=== PATIENT | female | born 1990 | race Caucasian/White ===

== ENCOUNTER 2018-02-24 11:23 | Inpatient (IN) | payer OTHER ==
[~2018-02-24] VITALS: Ht 170.2 cm; Wt 58.5 kg
[~2018-02-24 11:23] MED LIST: IBUPROFEN600 M1 PO; IBUPROFEN800 MG PO; KEPPRA 500MG T500 MG PO; LOESTRIN 21 1.51 TAB PO; MOTRIN800 MG PO; NAPROSYN500 M1 PO; OMEPRAZOLE D/R20 MG PO; PRENATAL1 TA2 PO; PROZAC20 M1 PO; RITALIN LA40 MG PO; RITALIN20 MG PO; RITALIN5 MG PO; VIGAMOX3 ML OPH; VYVANSE40 MG PO
[2018-02-24 12:21] LABS: ABSOLUTE BASOPHIL COUNT 0 /CUMM (0.0-0.2); ABSOLUTE EOSINOPHIL COUNT 0 /CUMM (0.0-0.7); ABSOLUTE GRANULOCYTE CT 3.5 /CUMM (1.4-6.5); ABSOLUTE LYMPH COUNT 1.2 /CUMM (1.2-3.4); ABSOLUTE MONOCYTE COUNT 0.3 /CUMM (0.10-0.60); BASOPHIL % 0.4 % (0.0-2.0); EOSINOPHIL % 0.6 % (0-5); GRANULOCYTE % 68.8 % (42.2-75.2); HEMATOCRIT 40.4 % (37-47); MEAN CORPUSCULAR HGB 31.9 PG (27.0-31.0); MEAN CORPUSCULAR HGB CONC 34.6 G/DL (33.0-37.0); MEAN CORPUSCULAR VOLUME 92.2 FL (81.0-99.0); MEAN PLATELET VOLUME 6.1 FL (7.4-10.4); PLATELET COUNT 259 /CUMM (130-400); RBC DISTRIBUTION WIDTH 13.8 % (11.5-14.5); RED BLOOD CELL CT 4.39 /CUMM (4.20-5.40)
--- NOTE | 2018-02-24 13:11 | ED GENERAL ADULT ---
See Addendum History of Present Illness General Chief Complaint: Psychiatric Related Complaint Stated Complaint: "BIPOLAR MEDS NOT WORKING" Source: patient Exam Limitations: no limitations Vital Signs & Intake/Output Vital Signs & Intake/Output Vital Signs Date Time Temp Pulse Resp B/P B/P Pulse O2 O2 Flow FiO2 Mean Ox Delivery Rate 02/24 1633 98.1 80 16 146/88 100 Room Air 02/24 1246 97 Room Air 02/24 1203 97.3 84 20 126/72 98 Room Air 02/24 1143 98.0 82 17 138/72 100 Room Air Allergies Coded Allergies: Penicillins (Severe, HIVES 02/08/16) amoxicillin (Severe, HIVES ENTIRE BODY 01/04/17) sulfamethoxazole (From Bactrim) (Severe, HIVES 02/08/16) trimethoprim (From Bactrim) (Severe, HIVES 02/08/16) zolpidem (From Ambien) (Severe, MADE HER SLEEP DRIVE ENDED UP IN SHELTER 02/08/16) Reconcile Medications Fluoxetine Hydrochloride (Prozac) (Unknown Strength) CAP (Unknown Dose) PO DAILY DEPRESSION (Reported) Ibuprofen 600 MG TABLET 1 TAB PO TID PRN pain with food Ibuprofen (Motrin) 800 MG TAB 1 TAB PO Q8H PRN PAIN Levetiracetam (Keppra 500MG Tab) 500 MG TAB 1 TAB PO BID SEIZURES Moxifloxacin Hydrochloride (Vigamox) 0.5 % DROPS 1 GTT OPH TID corneal abrasion Naproxen (Naprosyn) 500 MG TABLET 1 TAB PO BID pain NORETHINDRONE AC-ETH ESTRADIOL (Loestrin 21 1.5-30 Tablet) 1.5 MG-30 MCG TABLET 1 TAB PO DAILY CONTROL (Reported) Triage Note: "MY ANTI-DEPRESSANTS ARENT WORKING", "I TRIED TO HANG MYSELF IN MY DOWNSTAIRS, BASEMENT CLOSET". REPORTS SHE TRIED TO KILL HERSELF BY DRINKING ISOPROPYL ALCOHOL AFTER THE OF HER DAUGHTER, 2 YEARS AGO. STATES SHE HAS BEEN GOING TO "[facility]" FOR THERAPY. Triage Nurses Notes Reviewed? yes : No Patient currently breastfeeds: No HPI: 27-year-old female presents with suicidal ideations and suicide attempt. History of depression. Try to hang herself with a belt in the basement closet. Because she was too tall she was unable to go through with it. She called her family and asked them to bring her to the hospital for help. Past History Travel History Traveled to [place] past 21 day No Medical History Any Pertinent Medical History? 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 No Review of Systems Review of Systems Constitutional: Reports: no symptoms, see HPI. EENTM: Reports: no symptoms. Respiratory: Reports: no symptoms. Cardiovascular: Reports: no symptoms. GI: Reports: no symptoms. Genitourinary: Reports: no symptoms. Musculoskeletal: Reports: no symptoms. Skin: Reports: no symptoms. Neurological/Psychological: Reports: no symptoms. Hematologic/Endocrine: Reports: no symptoms. Immunologic/Allergic: Reports: no symptoms. All Other Systems: Reviewed and Negative Physical Exam Physical Exam General Appearance: comfortable Comments: General: Alert, calm, cooperative Head: Normocephalic, atraumatic Eyes: Normal inspection, no nystagmus, EOMI Ears: Normal inspection Nose: Normal inspection Throat: Moist mucosa Neck: Supple, no goiter Heart: Regular rate and rhythm, no murmurs rubs or gallops Lungs: Clear to auscultation bilaterally with good air entry Abdomen: Soft nontender nondistended, normal bowel sounds Chest: Nontender Extremities: Normal range of motion grossly, mild tremors present, no cyanosis clubbing or edema of the upper extremities Skin: Negative for signs of abrasions contusions or hematomas of the skin that including the neck. Neurologic: cranial nerves II through XII grossly intact, speech clear, gait normal Psychiatric: No apparent delusions or hallucinations, no pressured speech or thought blocking Core Measures ACS in differential dx? No CVA/TIA Diagnosis: No Sepsis Present: No Sepsis Focused Exam Completed? No Progress Differential Diagnoses I considered the following diagnoses in my evaluation of the patient: Suicidal ideations Plan of Care: Orders Procedure Date/time Status Regular Diet 02/24 D Active Add-on Test (ER Only) 02/24 1742 Active Continuous Observation Monitor 02/24 1310 Active ED CRISIS PSYCH CONSULT 02/24 1310 Active ETHANOL 02/24 1208 Complete URINE 02/24 115 Complete URINE DRUG SCREEN FOR ER ONLY 02/24 115 Complete COMPREHENSIVE METABOLIC PANEL 02/24 115 Complete CBC WITHOUT DIFFERENTIAL 02/24 115 Complete Current Medications Sig/Saulo Start time Last Medication Dose Stop Time Status Admin Trazodone HCl 200 MG QPM 02/24 2100 UNVr (Desyrel) Laboratory Tests 02/24/18 1228: Urine Opiates Screen < 100, Methadone Screen < 40, Barbiturate Screen < 60, Ur Phencyclidine Scrn < 6.00, Amphetamines Screen < 100, U Benzodiazepines Scrn < 85, Urine Cocaine Screen < 50, Urine Cannabis Screen < 5.00, Urine Test NEGATIVE 02/24/18 1208: Anion Gap 8, Estimated GFR > 60, BUN/Creatinine Ratio 16.0, Glucose 101 H, Calcium 9.3, Total Bilirubin 0.4, AST 26, ALT 33, Alkaline Phosphatase 46, Total Protein 6.6, Albumin 4.2, Globulin 2.4, Albumin/Globulin Ratio 1.8, CBC w Diff NO MAN DIFF REQ, RBC 4.39, MCV 92.2, MCH 31.9 H, MCHC 34.6, RDW 13.8, MPV 6.1 L, Gran % 68.8, Lymphocytes % 23.5, Monocytes % 6.7, Eosinophils % 0.6, Basophils % 0.4, Absolute Granulocytes 3.5, Absolute Lymphocytes 1.2, Absolute Monocytes 0.3, Absolute Eosinophils 0, Absolute Basophils 0, Serum Alcohol < 10.0 Initial ED EKG: none Departure Departure Disposition: STILL A PATIENT Condition: Stable Clinical Impression Primary Impression: Suicide attempt Secondary Impressions: Depression Qualifiers: Depression Type: unspecified Qualified Code: F32.9 - Major depressive disorder, single episode, unspecified Suicidal ideation Referrals: Patient Has No Primary Care Dr (PCP/Family) Departure Forms: Customer Survey General Discharge Information Critical Care Note Critical Care Note Critical Care Time: non-applicable
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
[2018-02-25] MEDS ORDERED: TRAZODONE HCL100 M1 PO (09:52)
[2018-02-25] MEDS ORDERED: PROPRANOLOL HCL20 M1 PO (09:52)
[2018-02-25] MEDS ORDERED: VENLAFAXINE HCL75 M1 PO (09:53)
[2018-02-25] MEDS ORDERED: VENLAFAXINE HC150 MG PO (09:54)
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
[2018-02-25 17:13] VITALS: BP 132/77
[2018-02-25 20:16] VITALS: BP 118/80
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
[2018-02-26 07:52] VITALS: BP 118/78
--- NOTE | 2018-02-26 10:22 | History & Physical ---
General Information and [facility] MD Statement: I have seen and personally examined NAIMA MORALES and documented this H& P. The patient is a 27 year old F who presented with a patient stated chief complaint of suicide attempt. Source of Information: patient Exam Limitations: no limitations History of Present Illness: 27-year-old female with past medical history significant for deviated nasal septum, TMJ, reported history of seizure, depression, PTSD who is admitted to [facility] secondary to attempting suicide. Patient wanted to hang herself. She states that she has been feeling very depressed lately. Over the last month she is overwhelmed and feels very depressed. She started working full-time at [employer] and has to be at work at 5:00am. She has to get up 4:00 in the morning so that she can get her daughter ready for school as well. She also has 2 grandparents at home and her grandmother has severe dementia. She is is getting overwhelmed with everything. She had attempted suicide 2 years ago by drinking rubbing alcohol. She was medically hospitalized and then psychiatrically hospitalized for that reason at that time. Since then she has been following up with outpatient psychiatry and states that things have been pretty good. Is just over the last month that she is feeling more depressed. She does complain of stuffy nose and itchy eyes. She develops allergies. She is a 2-year-old daughter who lives with her. Her father also lives close by. The daughter currently is with her aunt. She otherwise denies any aches or pains. Allergies/Medications Allergies: Coded Allergies: Penicillins (Severe, HIVES 02/08/16) amoxicillin (Severe, HIVES ENTIRE BODY 01/04/17) sulfamethoxazole (From Bactrim) (Severe, HIVES 02/08/16) trimethoprim (From Bactrim) (Severe, HIVES 02/08/16) zolpidem (From Ambien) (Severe, MADE HER SLEEP DRIVE ENDED UP IN [facility] 02/08/16) Home Med list Propranolol HCl 20 MG TABLET 1 TAB PO TID PRN ANXIETY (Reported) Trazodone HCl 100 MG TABLET 2 TAB PO QPM SLEEP (Reported) Venlafaxine HCl (Venlafaxine HCl ER) 75 MG CAP.ER.24H 1 CAP PO DAILY ANXIETY (Reported) Venlafaxine HCl (Venlafaxine HCl ER) 150 MG CAP.ER.24H 1 CAP PO DAILY ANXIETY (Reported) Past History Travel History Traveled to [place] past 21 day No Medical History Neurological: seizure EENT: NONE Cardiovascular: NONE Respiratory: NONE Gastrointestinal: NONE Hepatic: NONE Renal: NONE Musculoskeletal: DEVIATED SEPTUM Psychiatric: substance abuse, PTSD alcoholism Endocrine: NONE Blood Disorders: NONE Cancer(s): NONE VEST TAILOR/Reproductive: NONE History of MRSA: No History of VRE: No History of CDIFF: No Isolation History: Standard Tetanus Vaccine: 01/20/13 Surgical History Surgical History: non-contributory Past Family/Social History Family History Relations & Conditions if any Relation not specified for: *No pertinent family history Psychosocial History ETOH Use: occasional use Illicit Drug Use: denies illicit drug use Review of Systems Review of Systems Constitutional: Reports: see HPI. EENTM: Reports: see HPI. Cardiovascular: Reports: see HPI. Respiratory: Reports: see HPI. GI: Reports: see HPI. Neurological/Psychological: Reports: see HPI. Exam & Diagnostic Data Last 24 Hrs of Vital Signs/I&O Vital Signs Date Time Temp Pulse Resp B/P B/P Pulse O2 O2 Flow FiO2 Mean Ox Delivery Rate 02/26 0752 96.8 90 118/78 02/25 2016 97.3 68 118/80 02/25 1713 96.1 87 132/77 02/25 1603 97.8 75 16 116/74 99 Room Air 02/25 1304 98.1 62 14 122/82 99 Room Air 02/25 1053 97.8 76 20 124/71 100 Room Air Intake & Output 02/26 1600 02/26 0800 02/26 0000 Intake Total Output Total Balance Patient 129 lb Weight Physical Exam General Appearance Alert, Oriented X3, Cooperative Skin No Rashes HEENT PERRLA Neck Supple Cardiovascular Regular Rate, Normal S1, Normal S2 Lungs Clear to Auscultation Abdomen Normal Bowel Sounds, Soft, No Tenderness Neurological Cranial Nerves II through XII: Intact Extremities No Edema Last 24 Hrs of Labs/Sacha: Laboratory Tests 02/24 02/24 1228 1208 Chemistry Sodium (137 - 145 mmol/L) 136 L Potassium (3.5 - 5.1 mmol/L) 4.2 Chloride (98 - 107 mmol/L) 100 Carbon Dioxide (22 - 30 mmol/L) 28 Anion Gap (5 - 16) 8 BUN (7 - 17 mg/dL) 8 Creatinine (0.5 - 1.0 mg/dL) 0.5 Estimated GFR (>60 ml/min) > 60 BUN/Creatinine Ratio (7 - 25 %) 16.0 Glucose (65 - 99 mg/dL) 101 H Hemoglobin A1c (4.2 - 5.8 %) 4.7 Calcium (8.4 - 10.2 mg/dL) 9.3 Total Bilirubin (0.2 - 1.3 mg/dL) 0.4 AST (14 - 36 U/L) 26 ALT (9 - 52 U/L) 33 Alkaline Phosphatase (<127 U/L) 46 Total Protein (6.3 - 8.2 g/dL) 6.6 Albumin (3.5 - 5.0 g/dL) 4.2 Globulin (1.9 - 4.2 gm/dL) 2.4 Albumin/Globulin Ratio (1.1 - 2.2 %) 1.8 Triglycerides (<150 mg/dL) 83 Cholesterol (<200 MG/DL) 170 LDL Cholesterol, Calc (65 - 129 mg/dL) 81 HDL Cholesterol (40 - 60 mg/dL) 73 H Cholesterol/HDL Ratio (0.00 - 4.23 %) 2 TSH &T3 &Free T4 Intrp (0.270 - 4.20 uIU/mL) 1.200 Hematology CBC w Diff NO MAN DIFF REQ WBC (4.8 - 10.8 /CUMM) 5.0 RBC (4.20 - 5.40 /CUMM) 4.39 Hgb (12.0 - 16.0 G/DL) 14.0 Hct (37 - 47 %) 40.4 MCV (81.0 - 99.0 FL) 92.2 MCH (27.0 - 31.0 PG) 31.9 H MCHC (33.0 - 37.0 G/DL) 34.6 RDW (11.5 - 14.5 %) 13.8 Plt Count (130 - 400 /CUMM) 259 MPV (7.4 - 10.4 FL) 6.1 L Gran % (42.2 - 75.2 %) 68.8 Lymphocytes % (20.5 - 51.1 %) 23.5 Monocytes % (1.7 - 9.3 %) 6.7 Eosinophils % (0 - 5 %) 0.6 Basophils % (0.0 - 2.0 %) 0.4 Absolute Granulocytes (1.4 - 6.5 /CUMM) 3.5 Absolute Lymphocytes (1.2 - 3.4 /CUMM) 1.2 Absolute Monocytes (0.10 - 0.60 /CUMM) 0.3 Absolute Eosinophils (0.0 - 0.7 /CUMM) 0 Absolute Basophils (0.0 - 0.2 /CUMM) 0 Toxicology Urine Opiates Screen (>2000 NG/ML) < 100 Methadone Screen (>300 NG/ML) < 40 Barbiturate Screen (>200 NG/ML) < 60 Ur Phencyclidine Scrn (>25 NG/ML) < 6.00 Amphetamines Screen (>1000 NG/ML) < 100 U Benzodiazepines Scrn (>200 NG/ML) < 85 Urine Cocaine Screen (>300 NG/ML) < 50 Urine Cannabis Screen (>50 NG/ML) < 5.00 Serum Alcohol (<10 MG/DL) < 10.0 Urines Urine Test NEGATIVE Assessment/Plan Assessment: 27-year-old female with past medical history significant for deviated nasal septum, TMJ, depression, PTSD, polysubstance dependence, reported history of seizure who was admitted to [facility] with suicide attempt. Patient has been feeling worsening of her depression. She is asking for nicotine gum. It is already ordered. She is also asking for a Claritin. She is developing some seasonal allergies. I told patient's nurse about the Claritin. I have reviewed her blood work and that looks good. Her vital signs are stable. Further psychiatric management will be up to the psychiatrist. As Ranked By This Provider Problem List: 1. Depression Qualifiers Depression Type: unspecified Qualified Code: F32.9 - Major depressive disorder, single episode, unspecified 2. Suicide attempt 3. PTSD (post-traumatic stress disorder) 4. Polysubstance (excluding opioids) dependence Miscellaneous Miscellaneous Documentation Attending Case Discussed With: Amy Lazcano MD Primary Care Physician: Patient Has No Primary Care Dr Patient sees these Specialists Psychiatrist Level of Patient Care: [facility]
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
--- NOTE | 2018-02-26 14:53 | OP PSYCH PROGRESS NOTE ---
Psych (Outpt) Progress Note Encounter Encounter Type Medication Management Date of Group or Service: 02/26/18 Time of Group or Service: 1451 Subjective No show for this scheduled appt.Last seen in December 2017 by therapist.Last seen by psychiatrist in November 2017.
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
[2018-02-26 19:54] VITALS: BP 140/85
[2018-02-27 08:04] VITALS: BP 117/70
--- NOTE | 2018-02-27 10:38 | CP SOUTH PROGRESS NOTE PSYCH ---
Psych (Inpt) Progress Note Progress Note Date Time Temp Pulse B/P 02/27 0804 98.3 92 117/70 02/26 2154 93 140/85 02/26 1954 97.9 93 140/85 Mental Status Examination Patient was steady on her feet, calm and cooperative, normal psychomotor activity No abnormal or bizarre behaviors, talkative but not pressured Good range of affect, reported that she was feeling more anxious than depressed Denied thinking of suicide today, Denied thinking of violence or homicide today Denied hallucinations, Denies feeling paranoid, there were no delusions during the interview Patient was coherent, no thought disorder, Partial insight, questionable judgment, alert and oriented to time, place, and person. She does have history of attention deficit hyperactivity disorder but she showed reasonable attention and concentration during the interview. No evidence of short-term memory impairments Assessment: 27-year-old single white female who was admitted because of reporting that she was about to hang herself and calling her father to bring her to the hospital. The patient has had several diagnoses over the years. Patient has also significant psychosocial stressors. The patient seems to have had a very quick recovery since her admission yesterday. Today is day #2 without thoughts of suicide Diagnosis(es): Mood dysregulation disorder Rule out unspecified bipolar disorder or bipolar 2 Other specified personality disorder ADHD Treatment Plan: Increase prazosin to 2 mg at bedtime Continue Effexor at the current dose of 150 mg/day Abilify 5 mg daily trazodone 150 mg at bedtime continue all other medications unchanged was about to hang herself and calling her father to bring her to the hospital. The patient has had several diagnoses over the years. Patient has also significant psychosocial stressors. The patient seems to have had a very quick recovery since her admission yesterday. - Include all active medical diagnosis that require tx DSM 5 Diagnosis(es): Mood dysregulation disorder Rule out unspecified bipolar disorder or bipolar 2 Other specified personality disorder - Initial Tx Plan for Active Psych & Medical Conditions Treatment Plan: Inpatient psychiatric care with safety checks every 15 minutes and Continue Effexor at the current dose of 150 mg in (this is a reduction for her she reported that she was taking to 25 mg daily Start Abilify 5 mg daily Reduce trazodone to 150 mg at bedtime Add prazosin 1 mg at bedtime Biopsychosocial assessment, collateral information and aftercare planning Activities therapy, group therapy, and milieu therapy Patient will be seen by a psychiatrist daily
--- NOTE | 2018-02-27 10:52 | SOCIAL WORKER PROG NOTE PSYCH ---
Social Work Progress Note Progress Note This feature writer met with patient. She requested to call her public welfare director, Medical Order[employer] Efren Peters, to inform that she is in the hospital and inquire about any information needed regarding the admission. She called him with this feature writer present ([phone]) and he requested a letter informing of admission. ALESHA signed, letter written/reviewed by patient and faxed to Anaid Peters at 10:21am. This feature writer confirmed receipt of the letter with Carri at the [facility]. Fax number: [phone]. Patient also called her boss at [employer] and is requested to bring a letter regarding her admission once she returns to work. Patient described her mood as "good" and denied SI/HI/hallucinations. She stated that she is unsure about scheduling a family meeting with her father and would inform this feature writer or the covering social services assistant tomorrow. She stated that she will be staying with her father after discharge. She stated that her aunt will be visiting and staying with the patient's grandmother. She identified the relationship with her aunt as a stressor and will stay with her father to avoid interacting with the aunt. Patient is agreeable to a [facility] referral and would also like to return to [facility] for individual therapy. Patient was informed of possible discharge on 02/28/18.
--- NOTE | 2018-02-27 15:54 | SOCIAL WORKER PROG NOTE PSYCH ---
Social Work Progress Note Progress Note Psychiatric CHW Note E-mailed [place] and [place] at 3:50pm requesting IOP intake appt. Cassia Laio (Tish)
[2018-02-27 19:52] VITALS: BP 120/75
[2018-02-28 08:11] VITALS: BP 136/78
--- NOTE | 2018-02-28 08:35 | SOCIAL WORKER PROG NOTE PSYCH ---
Social Work Progress Note Progress Note Psychiatric CHW Note Pt has a [facility] IOP intake appt scheduled for 1:15pm on 02.28.18. Cassia Liao (Tish)
--- NOTE | 2018-02-28 08:45 | CP SOUTH PROGRESS NOTE PSYCH ---
Psych (Inpt) Progress Note Progress Note The patient's progress, treatment plan, and aftercare plans were discussed in the treatment team meeting this morning. Team members included: LCSWs, RNs, OTR/ L, and Psychiatrist. Vital Signs Date Time Temp Pulse Resp B/P 02/28 0811 97.9 100 136/78 02/27 2145 97.0 98 16 120/75 Mental Status: The patient described the following: she said that before she attempted to hang self before coming to the hospital, she felt that her suicide thoughts were controlled by a "parasite" and she pointed to the back of her head. I tried clarifying this and she made a reference to a movie that she saw. She did not believe that there were an actual parasite in her head but described feeling that he thoughts--at the time--were not under her control. I knew this patient while she was under my care in [facility] and did not suspect any psychosis. Her description and calrifications were vague and I did not get the impression that she had a delusion but was struggling to explain how she felt not in control of her thought and action at the time. She denied that she felt like this since admission. I clarified past history of hallucinations/delusions and the only positive was a hallucination under the influence of Ambien at one time, and another incidence of hearing music and a voice on one other occasion ( not under the influence). Denied hallucinations, Denies feeling paranoid, there were no delusions during the interview Patient was calm and cooperative, showed normal psychomotor activity, and no abnormal or bizarre behaviors. She was talkative but not pressured. She showed brighter and animated affect. Reported feeling in a "good mood." She denied thinking of suicide today, denied thinking of violence or homicide. Patient was coherent, no thought disorder, alert and oriented to time, place, and person. No evidence of short-term memory impairments Assessment: 27-year-old single white female who was admitted because of reporting that she attempted to hane self in a closet, did not require medical attention (she said bar broke and it was not high enough, was just 2 inches from the floor, no marking on her neck) She called her father to bring her to the hospital. The patient has had several diagnoses over the years. Patient has also significant psychosocial stressors. The patient seems to have had a very quick recovery since her admission. Today is day #3 without thoughts of suicide Diagnosis(es): Mood dysregulation disorder Rule out unspecified bipolar disorder or bipolar 2 Other specified personality disorder ADHD ? Alcohol Use disorder early remission Treatment Plan: Continue prazosin 2 mg at bedtime Continue Effexor at the current dose of 150 mg/day Reduce Abilify to 2 mg daily (as she reported that she felt jettery with 5 mg and noticed some stuttering, I researched the literature and there was a case report of that) continue all other medications unchanged
--- NOTE | 2018-02-28 11:16 | SOCIAL WORKER PROG NOTE PSYCH ---
Social Work Progress Note Progress Note Pt will dsicharge tomorrow and has an intake 03/01/18 at 1:15pm with [facility].
--- NOTE | 2018-02-28 11:16 | SOCIAL WORKER PROG NOTE PSYCH ---
Social Work Progress Note Progress Note NAIMA MORALES [id number] 1990 NAIMA MORALES [id number] Pended Authorization # Client Authorization # Type of Request [id number] CONCURRENT Date of Admission/ Start of Services Requested From Submission Date 02/25/2018 02/28/2018 02/28/2018
--- NOTE | 2018-02-28 14:59 | SOCIAL WORKER PROG NOTE PSYCH ---
Social Work Progress Note Progress Note I César Claros ([employer] STILL OPERATOR Cpo) checked in with Marilou this afternoon in her room. The patient was alert, and oriented. She was doing a word search puzzle. She states that she is ready and excited to discharge tomorrow. She wanted to stay an extra day to have her plans finalized and to process her feelings. Marilou has been to [facility] before and has no concerns about returning to [facility]. She reports being in a good mood which was consistent with her affect. She mentioned that she was attending groups. She denied feelings of anxiety and depression.
[2018-02-28 19:26] VITALS: BP 129/76
[2018-03-01 07:38] VITALS: BP 116/86
[2018-03-01] MEDS ORDERED: TRAZODONE HCL150 M1 PO (08:10)
[2018-03-01] MEDS ORDERED: PRAZOSIN HCL2 M1 PO (08:10)
[2018-03-01] MEDS ORDERED: LORATADINE10 M1 PO (08:10)
[2018-03-01] MEDS ORDERED: PROPRANOLOL HCL20 M1 PO (08:10)
[2018-03-01] MEDS ORDERED: ABILIFY2 MG PO (08:11)
--- NOTE | 2018-03-01 08:15 | Patient Discharge Instructions ---
Psych Discharge Inst General Discharge Information Reason for Admission: suicide attempt Psy Discharge Primary Diag+ Disruptive Mood Dysregula Psy Discharge Secondary Diag+ Rule out Unspecified Bipo Summary Tests/Major Procedures Normal hemoglobin A1c and lipid panel Studies Pending at DC: None Patient Instructions Contact Information Your Psychiatrist on [facility] was John Devlin MD * If you are experiencing an emergency related to this hospitalization, please call [phone] to contact the treating psychiatrist or the psychiatrist-on- call. * To Request a copy of your medical records, please contact the Medical Records Department at [phone]. * To request results of studies pending at the time of discharge, please call [phone]. * Continue your Medications until directed to stop by your Healthcare provider. General Medication Information Please continue to take your new medications and your continued home medications , unless otherwise indicated on your discharge medication list, or unless directed by your MD or PLANT BUYER to stop them. Special Instructions Diet Regular Activity Normal - Tobacco Use Treatment Offered Post DC Medications Offered: Refused Tob Medication Tx Post DC Tobacco Treatment Plan: Refused Tobacco Tx Pgm - EtOH/Drug Use D/O Treatment Offered Post DC Medications Offered: Med Not Indicated for D/O Post DC EtOH/SubAbuse TX Plan: Other SubAbuse/Dual Pgm Metabolic Screening Patient on a neuroleptic(s) . Enter below results for Hemoglobin A1C, and lipid panel if obtained during the last 365 days. BMI: 20.200 Blood Pressure: 116/86 Laboratory Results From [facility] (If applicable): Lab Cholesterol 170 MG/DL 02/24/18 1208 Cholesterol/HDL Ratio 2 % 02/24/18 1208 HDL Cholesterol 73 mg/dL H 02/24/18 1208 Hemoglobin A1c 4.7 % 02/24/18 1208 LDL Cholesterol, Calc 81 mg/dL 02/24/18 1208 Triglycerides 83 mg/dL 02/24/18 1208 Advance Directives Does the Patient have Medical Advance Directives No/Per pt req info given Does Pt have Psychiatric Advance Directives? No/Refused further info Does Patient have a Designated Surrogate Decision Maker: No Information About Psychiatric Advance Directives Provided? Refused Discharge Plan Post Hospital Treatment Plan: [facility]-Dual IOP (Substance Use/Mental Health)
--- NOTE | 2018-03-01 08:20 | DISCHARGE SUMMARY REPORT-PSYCH ---
Visit Information Visit Dates/Diagnosis' Admission Date: 02/25/18 Discharge Date: 03/01/18 Reason for Admission: suicide attempt Psy Discharge Primary Diag: Disruptive Mood Dysregula Psy Discharge Secondary Diag: Rule out Unspecified Bipo Hospital Course Significant Lab Findings: No significant lab abnormalities Course Complications: Patient did not have any complications while she was in the inpatient psychiatric unit. Consultations: Patient was seen by the unit aide for a history and physical. Please refer to the electronic health record for the details of the H&P. The patient is physically healthy Allergies: Coded Allergies: Penicillins (Severe, HIVES 02/08/16) amoxicillin (Severe, HIVES ENTIRE BODY 01/04/17) sulfamethoxazole (From Bactrim) (Severe, HIVES 02/08/16) trimethoprim (From Bactrim) (Severe, HIVES 02/08/16) zolpidem (From Ambien) (Severe, MADE HER SLEEP DRIVE ENDED UP IN RETIREMENT 02/08/16) Hospital Course/TX Response: 02/26/2018: Impression and Plan: 27-year-old single white female who was admitted because of reporting that she was about to hang herself and calling her father to bring her to the hospital. The patient has had several diagnoses over the years. Patient has also significant psychosocial stressors. The patient seems to have had a very quick recovery since her admission yesterday. - Include all active medical diagnosis that require tx DSM 5 Diagnosis(es): Mood dysregulation disorder Rule out unspecified bipolar disorder or bipolar 2 Other specified personality disorder - Initial Tx Plan for Active Psych & Medical Conditions Treatment Plan: Inpatient psychiatric care with safety checks every 15 minutes and Continue Effexor at the current dose of 150 mg in (this is a reduction for her she reported that she was taking to 25 mg daily Start Abilify 5 mg daily Reduce trazodone to 150 mg at bedtime Add prazosin 1 mg at bedtime Biopsychosocial assessment, collateral information and aftercare planning Activities therapy, group therapy, and milieu therapy Patient will be seen by a psychiatrist daily 02/27/2018: Increase prazosin to 2 mg at bedtime Continue Effexor at the current dose of 150 mg/day Abilify 5 mg daily trazodone 150 mg at bedtime continue all other medications unchanged 02/28/2018: Continue prazosin 2 mg at bedtime Continue Effexor at the current dose of 150 mg/day Reduce Abilify to 2 mg daily (as she reported that she felt jettery with 5 mg and noticed some stuttering, I researched the literature and there was a case report of that) continue all other medications unchanged 03/01/2018: Vital Signs Date Time Temp Pulse Resp B/P B/P Pulse O2 FiO2 03/01 0738 97.4 96 116/86 02/28 2149 98.7 89 16 129/76 Mental Status: Patient was alert and oriented to time, place, and person. She was calm and cooperative. She denied hallucinations, denies feeling paranoid, there were no delusions during the interview Patient was calm and cooperative, showed normal psychomotor activity, and no abnormal or bizarre behaviors. She was talkative but not pressured. She showed brighter and animated affect. Reported feeling in a "good mood." She denied thinking of suicide today, denied thinking of violence or homicide. Patient was coherent, no thought disorder, no evidence of short-term memory impairments Assessment: 27-year-old single white female who was admitted because of reporting that she attempted to hane self in a closet, did not require medical attention (she said bar broke and it was not high enough, was just 2 inches from the floor, no marking on her neck) She called her father to bring her to the hospital. The patient has had several diagnoses over the years. Patient has also significant psychosocial stressors. The patient seems to have had a very significant recovery since her admission. Diagnosis(es): Disruptive Mood dysregulation disorder Rule out unspecified bipolar disorder or bipolar 2 Other specified personality disorder ADHD Treatment Plan: D/C home to follow up with -IOP Discharge HBIPS - Tobacco Use Treatment Offered Post DC Medications Offered: Refused Tob Medication Tx Post DC Tobacco Treatment Plan: Refused Tobacco Tx Pgm - EtOH/Drug Use D/O Treatment Offered Post DC Medications Offered: Med Not Indicated for D/O Post DC EtOH/SubAbuse TX Plan: Other SubAbuse/Dual Pgm Metabolic Screening - Screen if on a Neuroleptic Medication - Metabolic screening should include: - Blood Pressure, BMI, Glucose or Hgb A1c, & a - Lipid profile from within the past 365 days. Metabolic Screening Patient on a neuroleptic(s) . Enter below results for Hemoglobin A1C, and lipid panel if obtained during the last 365 days. BMI: 20.200 Blood Pressure: 116/86 Laboratory Results From [facility] (If applicable): Lab Cholesterol 170 MG/DL 02/24/18 1208 Cholesterol/HDL Ratio 2 % 02/24/18 1208 HDL Cholesterol 73 mg/dL H 02/24/18 1208 Hemoglobin A1c 4.7 % 02/24/18 1208 LDL Cholesterol, Calc 81 mg/dL 02/24/18 1208 Triglycerides 83 mg/dL 02/24/18 1208 Discharge Instructions General Discharge Information Multiple Neuroleptics: Not Applicable Discharge Diet Regular Discharge Activity Normal DC Disposition: Home Prescriptions Stop taking the following medications: Trazodone HCl (Trazodone HCl) 100 MG TABLET ORAL Every night Qty = 60 Venlafaxine HCl (Venlafaxine HCl ER) 75 MG CAP.ER.24H ORAL DAILY Qty = 30 Continue taking these medications: Venlafaxine HCl (Venlafaxine HCl ER) 150 MG CAP.ER.24H 1 Capsule ORAL DAILY Qty = 30 Start taking the following new medications: Loratadine (Loratadine) 10 MG TABLET 10 Milligram ORAL DAILY Qty = 14 No Refills Prazosin HCl (Prazosin HCl) 2 MG CAPSULE 2 Milligram ORAL AT BEDTIME Qty = 14 No Refills Aripiprazole (Abilify) 2 MG TABLET 2 Milligram ORAL DAILY Qty = 14 No Refills Trazodone HCl (Trazodone HCl) 150 MG TABLET 1 Tablet ORAL Every night Qty = 30 No Refills The following medications have been changed: Old: Propranolol HCl (Propranolol HCl) 20 MG TABLET 1 Tablet ORAL THREE TIMES DAILY as needed for ANXIETY Qty = 90 New: Propranolol HCl (Propranolol HCl) 20 MG TABLET 1 Tablet ORAL THREE TIMES DAILY as needed for ANXIETY/tremor Qty = 45 Studies Pending at Discharge None Copies To: Daisy Vivas APRN; KARLOS PEARSON,LUISITO
[2018-03-01 11:16] VITALS: BP 116/86
--- NOTE | 2018-03-01 12:12 | SOCIAL WORKER PROG NOTE PSYCH ---
See Addendum Social Work Progress Note Progress Note Met with Marilou today.She denied SI/HI, no AH/VH. She seemed to have some pressured speech, thoughts clear. She plans to follow-up at [facility], has an intake today 03/01/18 at 1:15pm. She plans to live with her Father in [place] for about a week or so, to have a respite from her Grandmother who has dementia. She rates anxiety 4/10(worst) and depression 0/10. She wants to go back to work. She feels better on the medications. Her Father is picking her up today at [facility] around 2pm.
--- NOTE | 2018-03-01 14:10 | SOCIAL WORKER PROG NOTE PSYCH ---
Social Work Progress Note Faxed Referral(s) Referred To: [facility] Transition of Care Documents sent: Health Summary Faxed to: [facility] Fax #: [phone] Faxed by: Annabel Date faxed: 03/01/18 Time Faxed: [phone] Comment: Cassia Rendon" Keshawn-Psychiatric W
--- NOTE | 2018-03-01 17:52 | SOCIAL WORKER PROG NOTE PSYCH ---
See Addendum Social Work Progress Note Progress Note Faxed IOP Transfer 6:30pm 03/01/18
--- NOTE | 2018-03-01 18:51 | SOCIAL WORKER PROG NOTE PSYCH ---
Social Work Progress Note Progress Note Mailed Health Summary (discharge) to: [place] [address] on 03/01/18 - unalbe to reach to obtain Fax number. #[phone]. TC- [facility] - left a voicemail indicating patient was discharged and referred to [facility]. Also informed that Health Summary will be in mail to [facility]. If any questions, call Katelin Aguilar LCSW (left her number).
== END 2018-03-01 13:21 | DRG 753 ==
LOC: ERH 11:23 → CP SOUTH 02-25 13:21 → ERHI 02-25 13:21 → CP SOUTH 02-25 17:00
PROVIDERS: Physician Assistant
DX: F34.81 Disruptive mood dysregulation disorder (principal); F31.9 Bipolar disorder, unspecified
CPT/HCPCS: 80307; 81025; G0463; G0480; J3490